=== PATIENT | female | born 1980 | race Caucasian/White ===

== ENCOUNTER → 2017-01-04 | Outpatient (CLI) | payer OTHER ==
--- NOTE | ~2017-01-04 | US5 ---
[facility] A Service of [facility] & [facility] RADIOLOGY TEXT RESULTS PATIENT: JEREMAIH DIAZ LOCATION: [facility] : 80 UNIT #: [id number] AGE: [address]: Shaista Strong APRN SEX: F ORDER DR: [id number] [facility] [address] [place], [place] [address] [id number] O MR#: [id number] Acc #: [id number] NAME: JEREMIAH DIAZ : 1980 SEX: F STUDY DATE/TIME: 01/04/2017 9:56 UNIT: [facility] ROOM: STUDY DESCRIPTION: US Abdominal Complete Attending Physician: Shaista Strong A.P.R.N. Referring Physician: Archana Bahena M.D. Ordering Physician: Shaista Strong A.P.R.N. Primary Care Physician: Shaista Strong A.P.R.N. MEDICAL IMAGING REPORT This report is preliminary unless electronic signature is present EXAM Abdominal ultrasound complete, 01/04/2017. HISTORY Severe chest pain and epigastric abdominal pain for 2 1/2 months, left upper quadrant abdominal pain with nausea. FINDINGS The liver is homogeneous in echotexture and demonstrates no cystic or solid mass lesions. The intra and extrahepatic bile ducts are not dilated. The gallbladder is normal with no evidence of cholelithiasis, wall thickening, or pericholecystic fluid. The common duct measures 4 mm. The pancreas and spleen are normal. The spleen measures 9.6 cm in greatest diameter. The visualized portions of the abdominal aorta and inferior vena cava are within normal limits. There is a 2.9 cm cyst on the right kidney. The left kidney is normal. IMPRESSION Right renal cyst. Otherwise, negative abdominal ultrasound. Dictated by... Jim Hare M.D. THIS IS AN ELECTRONICALLY VERIFIED REPORT Jim Hare M.D. at 01/05/2017 10:32 AM FRANCISCO/serafin TD: 01/04/2017 15:47 JOB #: [id number] MEDICAL IMAGING REPORT [facility]. [facility] A Service of [facility] & [facility] RADIOLOGY TEXT RESULTS PATIENT: JEREMIAH DIAZ LOCATION: [facility] #: [id number] : 80 UNIT #: [id number] AGE: [address]: Shaista Strong APRN SEX: F ORDER DR: Page 1 of 1 COPY
== END | disposition home or self-care (01) ==
LOC: CWCC 09:34
DX: R10.13 Epigastric pain (principal); N28.1 Cyst of kidney, acquired; R14.3 Flatulence
CPT/HCPCS: 76700

== ENCOUNTER → 2017-04-15 | Outpatient (CLI) | payer OTHER ==
--- NOTE | ~2017-04-15 | CR198 ---
[facility] A Service of [facility] & [facility] RADIOLOGY TEXT RESULTS PATIENT: JEREMIAH DIAZ LOCATION: [facility] : 80 UNIT #: [id number] AGE: [address]: Shaista Strong APRN SEX: F ORDER DR: [id number] [facility] [address] [place], [place] [address] [id number] O MR#: [id number] Acc #: [id number] NAME: JEREMIAH DIAZ : 1980 SEX: F STUDY DATE/TIME: 04/15/2017 17:25 UNIT: [facility] ROOM: STUDY DESCRIPTION: CR Orbits Min 4 Views Attending Physician: Shaista Strong A.P.R.N. Referring Physician: Shaista Strong A.P.R.N. Ordering Physician: Shaista Strong A.P.R.N. Primary Care Physician: Shaista Strong A.P.R.N. MEDICAL IMAGING REPORT This report is preliminary unless electronic signature is present EXAM Orbit series 4 views, 04/15/2017 HISTORY Facial pain and pressure for one year. FINDINGS Oblique and AP projections of the orbits show normal bone definition surrounding the orbit margin. The optic foramen is well demarcated and is normal. There is no indication of orbital emphysema, radiopaque foreign body, or soft tissue injury. IMPRESSION Normal orbits. Dictated by... Payam Cazares M.D. THIS IS AN ELECTRONICALLY VERIFIED REPORT Payam Cazares M.D. at 04/21/2017 10:32 AM ROVERTO/mata TD: 04/16/2017 10:26 JOB #: [id number] MEDICAL IMAGING REPORT Page 1 of 1 COPY
--- NOTE | ~2017-04-15 | CR234 ---
[facility] A Service of [facility] & [facility] RADIOLOGY TEXT RESULTS PATIENT: JEREMIAH DIAZ LOCATION: [facility] : 80 UNIT #: [id number] AGE: [address]: Shaista Strong APRN SEX: F ORDER DR: [id number] [facility] [address] [place], [place] [address] [id number] O MR#: [id number] Acc #: [id number] NAME: JEREMIAH DIAZ : 1980 SEX: F STUDY DATE/TIME: 04/15/2017 17:22 UNIT: [facility] ROOM: STUDY DESCRIPTION: CR Skull < 4 Views Attending Physician: Shaista Strong A.P.R.N. Referring Physician: Shaista Strong A.P.R.N. Ordering Physician: Shaista Strong A.P.R.N. Primary Care Physician: Shaista Strong A.P.R.N. MEDICAL IMAGING REPORT This report is preliminary unless electronic signature is present EXAM Skull series 4 views, 04/15/2017 HISTORY Acute sinusitis, facial pressure and drainage for up to one year. FINDINGS Multiple views of the skull show no evidence of fracture or bone destruction. No foreign bodies are seen. The sella turcica is normal in size. IMPRESSION Normal skull series. Dictated by... Payam Cazares M.D. THIS IS AN ELECTRONICALLY VERIFIED REPORT Payam Cazares M.D. at 04/21/2017 10:32 AM David TD: 04/16/2017 10:18 JOB #: [id number] MEDICAL IMAGING REPORT Page 1 of 1 COPY
--- NOTE | ~2017-04-15 | CR194 ---
[facility] A Service of [facility] & [facility] RADIOLOGY TEXT RESULTS PATIENT: JEREMIAH DIAZ LOCATION: [facility] : 80 UNIT #: [id number] AGE: [address]: Shaista Strong APRN SEX: F ORDER DR: [id number] [facility] [address] [place], [place] [address] [id number] O MR#: [id number] Acc #: [id number] NAME: JEREMIAH DIAZ : 1980 SEX: F STUDY DATE/TIME: 04/15/2017 17:28 UNIT: [facility] ROOM: STUDY DESCRIPTION: CR Nasal Bones Min 3 Views Attending Physician: Shaista Strong A.P.R.N. Referring Physician: Shaista Strong A.P.R.N. Ordering Physician: Shaista Strong A.P.R.N. Primary Care Physician: Shaista Strong A.P.R.N. MEDICAL IMAGING REPORT This report is preliminary unless electronic signature is present EXAM Nasal bone series 3 views, 04/15/2017 HISTORY Facial pain and drainage for one year. FINDINGS There is normal nasal bone alignment. No fracture or overlying opaque soft tissue foreign body. IMPRESSION Normal nasal bones. Dictated by... Payam Cazares M.D. THIS IS AN ELECTRONICALLY VERIFIED REPORT Payam Cazares M.D. at 04/21/2017 10:32 AM ROVERTO/mata TD: 04/16/2017 10:38 JOB #: [id number] MEDICAL IMAGING REPORT Page 1 of 1 COPY
--- NOTE | ~2017-04-15 | CR188 ---
[facility] A Service of [facility] & [facility] RADIOLOGY TEXT RESULTS PATIENT: JEREMIAH DIAZ LOCATION: [facility] : 80 UNIT #: [id number] AGE: [address]: Shaista Strong APRN SEX: F ORDER DR: [id number] [facility] [address] [place], [place] [address] [id number] O MR#: [id number] Acc #: [id number] NAME: JEREMIAH DIAZ : 1980 SEX: F STUDY DATE/TIME: 04/15/2017 17:40 UNIT: [facility] ROOM: STUDY DESCRIPTION: CR Mastoids Min 3 View Attending Physician: Shaista Strong A.P.R.N. Referring Physician: Shaista Strong A.P.R.N. Ordering Physician: Shaista Strong A.P.R.N. Primary Care Physician: Shaista Strong A.P.R.N. MEDICAL IMAGING REPORT This report is preliminary unless electronic signature is present EXAM Mastoid series, 4 views, 04/15/2017. HISTORY Head and facial pain for 1 years. FINDINGS Normal. Dictated by... Payam Cazares M.D. THIS IS AN ELECTRONICALLY VERIFIED REPORT Payam Cazares M.D. at 04/21/2017 10:32 AM ROVERTO/serafin TD: 04/16/2017 10:46 JOB #: [id number] MEDICAL IMAGING REPORT Page 1 of 1 COPY
--- NOTE | ~2017-04-15 | CR233 ---
[facility] A Service of [facility] & [facility] RADIOLOGY TEXT RESULTS PATIENT: JEREMIAH DIAZ LOCATION: [facility] : 80 UNIT #: [id number] AGE: [address]: Shaista Strong APRN SEX: F ORDER DR: [id number] [facility] [address] [place], [place] [address] [id number] O MR#: [id number] Acc #: [id number] NAME: JEREMIAH DIAZ : 1980 SEX: F STUDY DATE/TIME: 04/15/2017 17:25 UNIT: [facility] ROOM: STUDY DESCRIPTION: CR Sinuses Paranasal Min 3 Vws Attending Physician: Shaista Strong A.P.R.N. Referring Physician: Shaista Strong A.P.R.N. Ordering Physician: Shaista Strong A.P.R.N. Primary Care Physician: Shaista Strong A.P.R.N. MEDICAL IMAGING REPORT This report is preliminary unless electronic signature is present EXAM Sinus series 3 views HISTORY Acute sinusitis, drainage and pain. Symptoms for 1 year. FINDINGS Normal. Dictated by... Payam Cazares M.D. THIS IS AN ELECTRONICALLY VERIFIED REPORT Payam Cazares M.D. at 04/21/2017 10:32 AM ROVERTO/angelina TD: 04/16/2017 10:27 JOB #: [id number] MEDICAL IMAGING REPORT Page 1 of 1 COPY
== END | disposition home or self-care (01) ==
LOC: CRAD 16:39
DX: S09.90XS Unspecified injury of head, sequela (principal); J01.91 Acute recurrent sinusitis, unspecified
CPT/HCPCS: 70130; 70160; 70200; 70220; 70250

== ENCOUNTER 2017-04-26 17:24 | Emergency (ER) | payer OTHER ==
[~2017-04-26] VITALS: Ht 164.3 cm; Wt 99.3 kg
--- NOTE | ~2017-04-26 | CT71 ---
[facility] A Service [facility] RADIOLOGY TEXT RESULTS PATIENT: JEREMIAH DIAZ LOCATION: [facility] : 80 UNIT #: [id number] AGE: [address]: Chapo Servin MD SEX: F ORDER DR: [id number] [facility] [address] [place], [place] [address] [id number] E MR#: [id number] Acc #: [id number] NAME: JEREMIAH DIAZ : 1980 SEX: F STUDY DATE/TIME: 04/26/2017 19:52 UNIT: [facility] ROOM: STUDY DESCRIPTION: CT Head Wo Contrast Attending Physician: Chapo Servin M.D. Ordering Physician: Chapo Servin M.D. Primary Care Physician: Shaista Strong A.P.R.N. MEDICAL IMAGING REPORT This report is preliminary unless electronic signature is present EXAM CT head without contrast, 04/26/2017. HISTORY 36-year-old female with headache for [address] head, 10/30/2008. TECHNIQUE Routine unenhanced axial images performed through the brain. This CT exam was performed with one or more of the following radiation dose reduction techniques: automatic exposure control, adjustment of mA and/or kV according to patient size, and iterative reconstruction. FINDINGS No hemorrhage, acute infarction, mass lesion, or abnormal extraaxial fluid collection. No midline shift or focal mass effect. Ventricular system normal in size and configuration. No acute bony abnormality. Mucosal thickening left sphenoid sinus and bilateral ethmoid air cells. Mucosal thickening left frontal sinus. Visualized mastoid air cells are clear. IMPRESSION 1. No acute intracranial abnormality. 2. Mucosal thickening left frontal sinus, left sphenoid sinus, and bilateral ethmoid air cells. Dictated by... Abelardo Olson M.D. THIS IS AN ELECTRONICALLY VERIFIED REPORT Abelardo Olson M.D. at 04/27/2017 2:18 PM JKB/pc [facility] A Service of [facility] RADIOLOGY TEXT RESULTS PATIENT: JEREMIAH DIAZ LOCATION: [facility] #: [id number] : [birth year] UNIT #: [id number] AGE: [address]: Chapo Servin MD SEX: F ORDER DR: TD: 04/27/2017 12:47 JOB #: [id number] MEDICAL IMAGING REPORT Page 1 of 1 COPY
--- NOTE | ~2017-04-26 | CR58 ---
[facility] A Service of [facility] & [facility] RADIOLOGY TEXT RESULTS PATIENT: JEREMIAH DIAZ LOCATION: [facility] : 80 UNIT #: [id number] AGE: [address]: Chapo Servin MD SEX: F ORDER DR: [id number] [facility] [address] [place], [place] [address] [id number] E MR#: [id number] Acc #: [id number] NAME: JEREMIAH DIAZ : 1980 SEX: F STUDY DATE/TIME: 04/26/2017 19:59 UNIT: [facility] ROOM: STUDY DESCRIPTION: CR Cervical Spine 2 or 3 Views Attending Physician: Chapo Servin M.D. Ordering Physician: Chapo Servin M.D. Primary Care Physician: Shaista Strong A.P.R.N. MEDICAL IMAGING REPORT This report is preliminary unless electronic signature is present EXAM Cervical spine 04/26/2017 HISTORY 36-year-old female with right-sided neck pain for 1 month. No specific injury. COMPARISON: Cervical spine 10/30/2008 FINDINGS Five views of the cervical spine is straight no acute fracture or subluxation. Vertebral body heights and alignment are normally maintained. Prevertebral soft tissues are normal. Atlantoaxial relationship normal. Cervicothoracic junction is unremarkable. Disc space and facets are within expected limits. IMPRESSION Unremarkable cervical spine. Dictated by... Abelardo Olson M.D. THIS IS AN ELECTRONICALLY VERIFIED REPORT Abelardo Olson M.D. at 04/27/2017 2:18 PM KAYLA/yoav TD: 04/27/2017 12:50 JOB #: [id number] MEDICAL IMAGING REPORT Page 1 of 1 COPY
== END 2017-04-26 21:35 | disposition home or self-care (01) ==
LOC: CED 17:24
DX: R51 Headache (principal); G89.29 Other chronic pain; S16.1XXA Strain of muscle, fascia and tendon at neck level, initial encounter; F17.210 Nicotine dependence, cigarettes, uncomplicated; X58.XXXA Exposure to other specified factors, initial encounter
CPT/HCPCS: 70450; 72040; 99284